=== PATIENT | female | born 1960 | race Caucasian/White ===

== ENCOUNTER 2023-05-06 13:47 | Outpatient (AMB) | payer OTHER, SELFPAY ==
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
== END 2023-05-06 15:49 | disposition home or self-care (01) ==
PROVIDERS: PCP Pediatrics; Referring Provider Physician Assistant; Visit Provider Physician Assistant
DX: G95.9 Disease of spinal cord, unspecified (principal); R29.898 Other symptoms and signs involving the musculoskeletal system
CPT/HCPCS: 99204

== ENCOUNTER → 2023-05-06 13:47 | Outpatient (BNVA) | payer OTHER, SELFPAY | PROVIDERS: PCP Pediatrics; Visit Provider Physician Assistant ==

== ENCOUNTER 2023-05-27 14:04 | Outpatient (AMB) | payer OTHER, SELFPAY ==
--- NOTE | 2023-05-27 14:15 | HO.SPINEOV ---
Intake Intake Visit Reasons: MRI f/u Intake Note: Ms. Pablo is here today to F/u on MRI Press Operator Required: No Assessment & Plan Assessment & Plan (1) Leg weakness: Code(s): R29.898 - Other symptoms and signs involving the musculoskeletal system Plan Mrs Pablo is here in follow-up today. She underwent her cervical and thoracic MRI done at [facility] for evaluation of possible spinal cord impingement. We do see the previous area of myelomalacia at C3 which was seen on her previous MRI done at [place] a number of years ago consistent with her known spinal cord injury 20 years ago. We do not see any new areas of concern or spinal cord impingement that would explain the patient's symptoms. The thoracic MRI as well does not show any evidence of compression or cord signal change. I reviewed the patient's imaging, and I re-examined her with Dr. Mendoza. She clearly has a spastic right leg with proximal weakness that would not fit with her stenosis at L3-4, L4-5 necessarily. She currently has no pain. Where a little perplexed as to what is causing this significant change in her stability and her proximal leg weakness on the right side. We are going to order a brain MRI to rule out that she did not have a stroke last year when the leg weakness started. I will call her with the results. If there is nothing on that image that would explain her symptoms, we would consider possible decompression of the lumbar area because of the weakness. Total amount of time spent in this visit was 20 minutes in discussion of symptoms, cervical and thoracic imaging results and subsequent plan of care Bernardino Mendoza MD,PhD [facility] Orders: Orders MR head/brain wo con Today R29.898 - Other symptoms and signs involving the musculoskeletal system Coding Level of Care Code Est Pt Level 3 (71763) Diagnoses Leg weakness R29.898
== END 2023-05-27 15:10 | disposition home or self-care (01) ==
PROVIDERS: PCP Pediatrics; Visit Provider Physician Assistant
DX: R29.898 Other symptoms and signs involving the musculoskeletal system (principal)
CPT/HCPCS: 99213

== ENCOUNTER → 2023-05-27 14:04 | Outpatient (BNVA) | payer OTHER, SELFPAY | PROVIDERS: PCP Pediatrics; Visit Provider Physician Assistant ==

== ENCOUNTER 2023-06-24 11:33 | Outpatient (REF) | payer OTHER, SELFPAY | END 2023-06-24 11:34 | disposition home or self-care (01) | LOC: CF 11:33 | DX: Z13.89 Encounter for screening for other disorder (principal) ==

== ENCOUNTER 2023-08-01 14:02 | Outpatient (REF) | payer OTHER, SELFPAY ==
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
== END 2023-08-01 14:03 | disposition home or self-care (01) ==
LOC: HO.NEURO 14:02
PROVIDERS: PCP Pediatrics; Visit Provider Physician Assistant
DX: R29.898 Other symptoms and signs involving the musculoskeletal system (principal)
CPT/HCPCS: 95886; 95908

== ENCOUNTER → 2023-08-01 14:06 | Outpatient (BNV) | payer OTHER, SELFPAY | PROVIDERS: PCP Pediatrics; Visit Provider Physical Medicine & Rehabilitation | DX: G57.31 Lesion of lateral popliteal nerve, right lower limb (principal) | CPT/HCPCS: 95886; 95908 ==

== ENCOUNTER 2023-09-25 14:48 | Outpatient (AMB) | payer OTHER, SELFPAY ==
--- NOTE | 2023-09-25 15:10 | A.SPINEOV_ITS ---
Intake Visit Reasons: discuss MRI's/questions Intake Note: Ms. Pablo is here today to discuss MRI Mushroom Laborer Required: No Assessment & Plan Assessment & Plan (1) Leg weakness: Code(s): R29.898 - Other symptoms and signs involving the musculoskeletal system Category: Medical Plan Mrs Pablo is here in follow-up. We had previously seen her in the setting of difficulty walking and some imbalance of her gait. We did an extensive workup and ultimately we are not able to find anything that would strictly cause balance issues. Ultimately an EMG showed a peroneal neuropathy. She comes in today and tells me that the pain that was in her leg is basically gone and the strength in her foot seems to have returned. She reports now being pain free in his very excited about that. We talked about general recovery from nerve injuries and that things could continue to improve but she should call me if something changes down the road. I do not think the stenosis was the original source of her symptoms, it was probably the peroneal neuropathy. If she does return with significant leg pain then we could consider re-evaluating her for the stenosis. Total amount of time spent in this visit was 20 minutes in discussion of symptoms, lumbar imaging results and subsequent plan of care Bernardino Mendoza MD,PhD [facility] Coding Level of Care Code Global (71094) Diagnoses Leg weakness R29.898
== END 2023-09-25 15:39 | disposition home or self-care (01) ==
PROVIDERS: PCP Pediatrics; Visit Provider Physician Assistant
DX: R29.898 Other symptoms and signs involving the musculoskeletal system (principal)
CPT/HCPCS: 99213

== ENCOUNTER → 2023-09-25 14:48 | Outpatient (BNVA) | payer OTHER, SELFPAY | PROVIDERS: PCP Pediatrics; Visit Provider Physician Assistant ==

== ENCOUNTER 2024-02-16 11:18 | Outpatient (AMB) | payer OTHER, SELFPAY ==
--- NOTE | 2024-02-16 11:26 | HO.SPINEOV ---
Intake Visit Reasons: discuss possible surgery Intake Note: Ms. Pablo is here today to Discuss Surgical options. Executive Housekeeper Required: No Assessment & Plan Assessment & Plan (1) Lumbar stenosis: Code(s): M48.061 - Spinal stenosis, lumbar region without neurogenic claudication Category: Medical Plan Dear Tom, Mrs Pablo came in for another evaluation. Unfortunately the right leg pain came back in his now giving her significant amount of pain when she is walking. It radiates from her right side of her low back down into her buttock and into her posterolateral thigh, but also part of her anterior thigh. She is feeling weakness in bit of her anterior thigh as well and her tibialis with dorsiflexion. This has been an on and off thing for her, but now it is getting to a point where she goes home from work and just sits in a chair she can not get up and even do something simple like walk her dog. She is very frustrated with her quality of life. She has been through conservative treatment add nauseam. I think she is ready for consideration of surgical decompression, specifically a right L3-4 right L4-5 decompression. I did briefly discuss this procedure with her, but will review the x-rays and MRIs done at [facility] with Dr. Mendoza just to confirm the plan. She understands that the weakness in her tibialis and in her iliopsoas will likely not get better with surgery as these are partly attributed to her previous history of cervical myelopathy and peroneal neuropathy. Pt was given risk and benefits of surgery including but not limited to infection, hematoma , nerve injury,durotomy, weakness,bowel/bladder injury, persistent pain, as well as the option to continue with conservative treatment and patient wishes to proceed with surgery. Pt is aware they should stop their motrin, aspirin 7 days prior to surgery. All questions were answered to the best of our ability. If there is anything about this patients medical history that we have overlooked or concerns you have about us proceeding with surgery we would appreciate any input you can offer. Total amount of time spent in this visit was 20 minutes in discussion of symptoms, lumbar imaging results and subsequent plan of care Bernardino Mendoza MD,PhD [facility] Coding Level of Care Code Est Pt Level 3 (42130) Diagnoses Lumbar stenosis M48.061
--- OUTSIDE RECORDS SUMMARY | 2024-02-16 12:53 | XMS_ITS ---
Author Name [facility] Organization Unknown History of Medication Use Medication Directions Dispensed Refills Start Date End Date Stat predniSONE (DELTASONE) 20 MG tablet Take 2 tablets (40 mg total) by mouth daily. With food. 11/24/2021 aborted PARoxetine (PAXIL) 30 MG tablet Take 30 mg by mouth daily. 11/24/2021 active azithromycin (ZITHROMAX) 250 MG tablet Take 2 tablets by mouth on day 1 followed by 1 tablet by mouth daily on days 2 through 5. 04/19/2023 active benzonatate (TESSALON) 200 MG capsule Take 1 capsule (200 mg total) by mouth 3 (three) times a day as needed for cough. 11/24/2021 active albuterol (PROVENTIL HFA; VENTOLIN HFA) 108 (90 Base) MCG/ACT inhaler Inhale 2 puffs every 4 (four) hours as needed for wheezing or shortness of breath. 04/19/2023 active Problems Problem Status Onset Date Problem Type Date of Resoluti on Source Acute bacterial bronchitis active [facility]
--- OUTSIDE RECORDS SUMMARY | 2024-02-16 12:59 | XMS_ITS | Continuity of Care Document ---
Author Organization [facility] Address [address] [place] [address]- Care Team Providers Care Qa Automation Architect Name Role Phone Nasir Vela MD Primary Care Physician Encounter [facility] [place] [place] Date(s): 12/26/23 - 01/25/24 [facility] [address] [place] [id number] Attending Physician: Chastity Beck Admitting Physician: Chastity Beck Referring Physician: Admtr ArDonna Encounter Type: Triage Allergies, Adverse Reactions, Alerts No Known Allergies Medications Ativan 0.5 mg oral tablet 0.5 tablet = 0.25 mg, By Mouth, 2 times a day, # 30 tablet, 0 Refills, Maintenance, 01/05/18 10:55:44 AM EST, Tablet Start Date: 01/05/18 Status: Ordered Quantity: 30.0 Unit: tablet Repeat number: 1 Multivitamin Daily, 0 Refills, Maintenance, 06/21/16 3:43:21 PM EDT Start Date: 06/21/16 Status: Ordered Repeat number: 1 PARoxetine 30 mg oral tablet 1 tablet = 30 mg, By Mouth, 2 times a day, 0 Refills, Maintenance, 06/21/16 3:42:12 PM EDT Start Date: 06/21/16 Status: Ordered Repeat number: 1 Problem List Condition Confirmation Course Effective Dates Status Health St [facility] Informant Follicular lymphoma Confirmed Active Obese class I Confirmed Active Social History Social History Type Response Smoking Status Current some day smo ker entered on: 01/28/17 Sex Sex Representation Female (finding) Laboratory * Event Display: Non [facility] Lab Results Authored Date: * Event Display: Non [facility] Lab Results Authored Date: Patient Care team information Care Team Personnel Name: Ammon , Diana Position: [facility] Onco RN Member Role: Primary Care Nurse Name: Kari Agrawal MA Position: [facility] Onco RN Member Role: Primary Care Nurse Name: Nasir Vela MD Position: [facility] Physician - Primary Care Member Role: PCP Address: [address] [place] [address] Appetizer Packer VIJAYA Swanson [id number] Telecom: Care Team Related Persons Name: KATIE MEADE Insurance Providers Guarantor name: CANDACE Health Plan Information #: 1 Payer: [employer] Member Number: NA Policy Number: NA Group Number: NA
== END 2024-02-16 12:48 | disposition home or self-care (01) ==
PROVIDERS: PCP Pediatrics; Visit Provider Physician Assistant
DX: M48.061 Spinal stenosis, lumbar region without neurogenic claudication (principal)
CPT/HCPCS: 99213

== ENCOUNTER 2024-03-25 | Outpatient (REF) | payer OTHER, SELFPAY ==
--- NOTE | 2024-03-15 | ECG_ITS ---
Test Reason : pre op Blood Pressure : */* mmHG Vent. Rate : 74 BPM Atrial Rate : 74 BPM P-R Int : 124 ms QRS Dur : 84 ms QT Int : 414 ms P-R-T Axes : 49 20 35 degrees QTcB Int : 459 ms Normal sinus rhythm Normal ECG No previous ECGs available Referred By: Pastora Cummings Electronically Signed By: Ethan Correa
[2024-03-15 12:23] VITALS: BP 176/83; PULSE 77; RESP 18; O2SAT 98; BMI 32.6
--- NOTE | 2024-03-15 12:51 | P.CONAN_ITS ---
Documented by User: Pastora Cummings NP 03/16/24 13:17 HPI - Anesthesia Eval Consult details Narrative: 64yo F for Right L3-4,L4-5 Lumbar Decompression, 03/25/24 No recent illness No CP/SOB with minimal activity d/t pain Occassional smoker Lymphoma: Resovled ~ 7 years ago PMF Active Problems Active Problems: All Active Problems Lumbar stenosis (Acute) Leg weakness (Acute) Cervical myelopathy (Acute) Past Medical History Medical History White coat syndrome with hypertension Tobacco use disorder Depression OCD (obsessive compulsive disorder) Anxiety Follicular non-Hodgkin lymphoma Cervical myelopathy Lumbar stenosis with neurogenic claudication Family History Family history of problems with anesthesia: No Surgical History Surgical History Hx of excision of mass Hx of cone biopsy of cervix Hx of tonsillectomy H/O colonoscopy History of Problems with Anesthesia: No Social History Social History Are you a primary health care administrator to a significant other at home: No Do you presently have visiting nurse or other home services: No Patient Tobacco Use Status: Current everyday Tobacco user Tobacco use type: Cigarette Cigarettes Per Day: 3 Years Smoked: 20 Use of substances other than those prescribed or required for medical reasons: Yes Substance Use Frequency: Daily Have you been hit, kicked, punched, or otherwise hurt by someone within the past year? If so, by whom?: No Are you DNR?: No Advance Directives: No Advance Directives Information Provided: Yes Advance Directives on File: No Recently lost weight without trying: No Nutrition Risks: No Nutritional Risk Patient : No Meds Allergies Allergy/AdvReac Type Severity Reaction Status Date / Time No Known Allergies Allergy Verified 03/31/24 11:39 Home Medications ?Medication ?Instructions ?Recorded ?Confirmed ?Last Taken ?Type paroxetine HCl 30 mg tablet 60 mg PO QAM 03/12/24 03/31/24 03/30/24 History acetaminophen 500 mg tablet 1,000 mg PO Q6H PRN Pain 03/15/24 03/31/24 03/30/24 History naproxen sodium 220 mg capsule 220 mg PO BID 03/15/24 03/15/24 Unknown History (Aleve) Exam Height,Weight and Vital Signs: Height 5 ft 4.5 in Weight 87.543 kg Last Vital Signs Pulse 77 03/15/24 12:23 Resp 18 03/15/24 12:23 BP 176/83 H 03/15/24 12:23 Pulse Ox 98 03/15/24 12:23 O2 Del Method Room Air 03/15/24 12:23 Pertinent Lab Results Pertinent Lab Results: CBC and CMP 10/2023 from outside facility WNL Narrative Narrative: EKG 03/2024 Vent. Rate : 74 BPM Atrial Rate : 74 BPM P-R Int : 124 ms QRS Dur : 84 ms QT Int : 414 ms P-R-T Axes : 49 20 35 degrees QTcB Int : 459 ms Normal sinus rhythm Normal ECG No previous ECGs available Airway Mallampati Class: I TM Dist: >3cm Neck ROM: Limited Loose/Missing/Broken Teeth: Yes (1 x missing, crowns throughout) Heart: RRR Lungs: CTAB Assessment and Plan Assessment Anesthesia Assessment: Anesthesia Plan Discussed, Smoking Cess. Discussed and PAT Visit Final Anesthetic Review Family History of Problems with Anesthesia: No History of Problems with Anesthesia: No Documented by User: Janie Mota MD 03/31/24 12:10 PMFSH Past Medical History Medical History White coat syndrome with hypertension Tobacco use disorder Depression OCD (obsessive compulsive disorder) Anxiety Follicular non-Hodgkin lymphoma Cervical myelopathy Lumbar stenosis with neurogenic claudication Surgical History Surgical History Hx of excision of mass Hx of cone biopsy of cervix Hx of tonsillectomy H/O colonoscopy Social History Social History Are you a primary health care administrator to a significant other at home: No Do you presently have visiting nurse or other home services: No Patient Tobacco Use Status: Current everyday Tobacco user Tobacco use type: Cigarette Cigarettes Per Day: 3 Years Smoked: 20 Use of substances other than those prescribed or required for medical reasons: Yes Substance Use Frequency: Daily Have you been hit, kicked, punched, or otherwise hurt by someone within the past year? If so, by whom?: No Are you DNR?: No Advance Directives: No Advance Directives Information Provided: Yes Advance Directives on File: No Recently lost weight without trying: No Nutrition Risks: No Nutritional Risk Patient : No Meds Allergies Allergy/AdvReac Type Severity Reaction Status Date / Time No Known Allergies Allergy Verified 03/31/24 11:39 Home Medications ?Medication ?Instructions ?Recorded ?Confirmed ?Last Taken ?Type paroxetine HCl 30 mg tablet 60 mg PO QAM 03/12/24 03/31/24 03/30/24 History acetaminophen 500 mg tablet 1,000 mg PO Q6H PRN Pain 03/15/24 03/31/24 03/30/24 History naproxen sodium 220 mg capsule 220 mg PO BID 03/15/24 03/15/24 Unknown History (Aleve) Assessment and Plan Final Anesthetic Review NPO: Yes ASA Class: III Final Preanesthetic Review: No Changes in Pt Med Stat, Meds/Allgs Chart Reviewed, Consent Obtained/Reviewed and Anes Risks/Benef Reviewed Patient Risk: Intermediate Procedure Risk: Intermediate Anesthetic Plan Anesthetic Plan: GA Disposition: Standard PACU
--- OUTSIDE RECORDS SUMMARY | 2024-08-03 15:00 | XMS_ITS | Clinical Summary ---
Author Organization [facility] Address [address] [place] [address] Care Team Providers Care Mold Tooler Name Role Phone Pcp, No Primary Care [...] 85 04/17/2023 8:31 AM EST Temperature 36.8 C (98.2 F) 04/17/2023 8:31 AM EST Respiratory Rate 18 04/17/2023 8:31 AM EST [...] Zoster (Shingles) Vaccine (1 of 2) 2011 COVID-19 Vaccine (3 - 2023-2 5 season) 2023 11/16/2020, 10/17/2020 Influenza Vaccine 09/10/2024 02/23/2019 RSV Vaccine 60 years and older and Patients (1 - 1-dose 75+ series) 02/10/2036 Hepatitis B Vaccines Aged Out No long er eligible based on patient's age to complete this topic Insurance [facility] AETNA HMO/POS Care Teams Mold Tooler Relationship Specialty Start Date End Date Pcp, Maryuri PCP - General General Medicine 04/17/23
== END 2024-03-25 00:01 | disposition home or self-care (01) ==
LOC: HO.PAT
PROVIDERS: Visit Provider Neurological Surgery
DX: Z01.818 Encounter for other preprocedural examination (principal); M48.061 Spinal stenosis, lumbar region without neurogenic claudication
CPT/HCPCS: 93005

== ENCOUNTER 2024-03-31 11:04 | Day surgery (SDC) | payer OTHER, SELFPAY ==
[2024-03-31] VITALS (8 sets, daily range): BP systolic 123–149; BP diastolic 72–94; PULSE 85–104; RESP 16–20; TEMP 37.1–37.6; O2SAT 93–97; BMI 31.2
--- NOTE | ~2024-03-31 | FL_ITS ---
EXAMINATION: FLUOROSCOPY GUIDANCE FOR NEEDLE PLACEMENT CLINICAL INFORMATION: l3 l4, l4 l5 decompression, right COMPARISON: None available. TECHNIQUE: Fluoroscopy guidance in the operative room patient in prone position and 2 static images obtained of the lumbar region. FINDINGS: Metallic instruments at the L3-4 and L4-5 posterior elements levels FLUOROSCOPY TIME: 5.4 seconds. DOSE AREA PRODUCT: 5. 5772 uGy-m2 (microgray-meter squared) FL/FL guidance in OR IMPRESSION: Nondiagnostic fluoroscopy guidance for posterior lumbar decompression L3-4 and L4-5. Please refer to the procedure note. Electronically signed by: Phuc Scott MD 04/02/2024 08:29 AM BLU
[2024-03-31] MEDS: methocarbamoL 750 MG TABLET PO (11:51)
[2024-03-31] MEDS: Gabapentin 300 MG CAPSULE PO (11:51)
[2024-03-31] MEDS: Lactated Ringers 1,000 ML 100 ML IVCONT (11:54)
--- NOTE | 2024-03-31 12:46 | MHC.SHP ---
Pre-Procedural Eval Section A - 24 Hr Update-Section A only Date of Service: 03/31/24 Section B - Complete if H&P > 30 days Chief Complaint: Spinal stenosis, lumbar region without neurogenic Allergies: Allergies Allergy/AdvReac Type Severity Reaction Status Date / Time No Known Allergies Allergy Verified 03/31/24 11:39 Review of Systems Sugical H&P ROS: Negative: Constitution, Cardiovascular, Respiratory, Neurological, Psychiatric, Hem-Onc, Allergic/Immunologic, Gastrointestinal, Genitourinary, Musculoskeletal, Integumentary, Endocrine and Eyes/Ears/Nose/Throat Exam Surgical H&P Exam: Not Evaluated: HEENT, Not Evaluated: Heart, Not Evaluated: Lungs, Not Evaluated: Extremities, Not Evaluated: Abdomen, Not Evaluated: Skin and Not Evaluated: Neurological Plan Diagnosis/Plan: Unchanged I have reviewed the history and physical and performed a pertinent physical examination on my patient. No changes have occurred unless specified. Plan remains the same, right sided L3-4, L4-5 lumbar decompression. Time Spent With Patient Time: Total time managing care of this patient today __13__ minutes.
--- NOTE | 2024-03-31 14:50 | W.PM.OPN ---
Operative Note Operative Note Date of Service: 03/31/24 Narrative: Preoperative Diagnosis: L3-4 and L4-5 spinal stenosis/lateral recess stenosis/neural foraminal stenosis Operation: Right L3-4, L4-5 Laminotomy, Partial facetectomy and foraminotomy with use of microscope Consent Informed Consent was obtained for this operation. I have explained the nature, purpose and benefits of the operation. I have discussed the risks and benefit of the operation including possible complications or adverse events with patient/family. Alternative(s) were discussed with the patient with their relative benefits and risks as well as the consequences of not accepting the operation were included in obtaining consent. Surgeon: DAVID MARTINEZ MD, PHD Procedure Assisted By: Leonid Johnson Description of Procedure This 64-year-old female suffering from a right lumbar radiculopathy due to L3-4 and L4-5 lateral recess stenosis.. The patient was offered a decompression. The procedure complications were explained. The patient was consented. The patient was brought to the operating room and endotracheally intubated. The patient was turned in prone position on the Hubert frame. Prep and drape was done followed by timeout. The Physician instructional assistant provided access. A mid lumbar incision was made followed by release of the paravertebral muscle on the right side to expose the L3-4 and L4-5 lamina and facet joints. An intraoperative x-ray was obtained to confirm the correct level. The microscope was brought in. I took over the procedure. The high-speed drill was used to do a right C4 and L4-5 laminotomy until flavum ligament was reached. I then continued with the L3-4 level. A #2 Kerrison was used to expand the laminotomy near flush to the pedicles and to include a partial facetectomy. The flavum ligament was opened and resected with a #3 Kerrison to decompress the underlying thecal sac. The flavum ligament was removed to decompress the lateral recess and the exiting L4 nerve root. . A long nerve hook could be easily passed along the medial side of the pedicles as a sign of adequate decompression. Then attention was turned to the L4-5 level. Flavum ligament was opened and the underlying thecal sac and exiting nerve root were decompressed. Significant lateral recess stenosis was present at both levels. The microscope was removed. Hemostasis was done. The physician instructional assistant close the Incision in 2 layers. Steri-Strips were used to approximate incision. An OpSite with Tegaderm was used to cover the incision. All sponge needle counts were correct. Patient was extubated and transported in stable is to recovery room. Anesthesia: General Estimated Blood Loss (ml): 30 mL Complications: None Duration of Surgery: 90 minutes Minutes Postoperative Plan: Discharge to home
--- NOTE | 2024-03-31 14:59 | PM.DS ---
DS: Providers Provider Date of Service: 03/31/24 Date of discharge: 03/31/24 Primary care physician: Unknown Physician DS: Summary Time Attestation Discharge Coordination Time (in mins): 12 Quality: Safe Use of Opioids Does Pt have an Active Cancer Diagnosis on the Problem List?: No Quality: Stroke Does the patient have a stroke diagnosis?: No Physical Exam Vital Signs: Vital Signs: Last Vital Signs Temp 98.7 F 03/31/24 11:45 Pulse 94 03/31/24 11:45 Resp 16 03/31/24 11:45 BP 149/94 H 03/31/24 11:45 Pulse Ox 97 03/31/24 11:45 O2 Del Method Room Air 03/31/24 11:45 BMI result Body Mass Index 31.2 Discharge Plan Discharge Patient Disposition: Home, Self-Care Referrals: Physician,Unknown J [Primary Care Provider] - 1 Week Discharge Medications: New oxycodone 5 mg tablet 5 mg PO Q6H PRN (Reason: pain ) Qty: 30 0RF Rx Instructions: Partial Fill upon patient request. Continued paroxetine HCl 30 mg tablet 60 mg PO QAM Held naproxen sodium [Aleve] 220 mg Capsule 220 mg PO BID Hold Instructions: Resume on 03/31/24. No Action acetaminophen 500 mg Tablet 1,000 mg PO Q6H PRN (Reason: Pain) Discharge Orders: Discharge Order (Routine); Ordered 03/31/24 Ordered By: Nick De Jesus Diet: Advance to usual diet Activity on Discharge: As tolerated Activity Restrictions/Additional Instructions: After your spinal surgery we ask you to observe the following restrictions/guidelines: Activity: It is normal to feel some discomfort as you increase your activity, but that will improve with time. We ask you avoid heavy lifting or acitivities that cause pain. As a general rule, 8lbs is a safe limit for lifting right after surgery. Walk as much as you feel comfortable but not to exhaustion. You will feel extra tired the first few days after surgery. Stay well hydrated. It is OK to walk up and down stairs You may return to driving when you are off narcotics (such as vicodin, oxycodone, dilaudid, etc), and you are back to normal functional capacity. If you have any concerns please check with office before driving. Return to work is specific to each patient and each surgery, so please speak with your doctor/PA at first follow up. Please bring paperwork such as FMLA at that time if you need it filled out. Medications: We recommend you take 1,000mg Tylenol every 8 hours for the first few weeks after surgery, if you do not have any liver issues and can tolerate this medication. Do not exceed 4,000mg daily. We will give you a short supply of narcotics after surgery (usually one weeks worth). If you need more please call the office but do not use more than prescribed. You will need to give our office 48 hours notice if you need narcotics refilled and we do not fill narcotics on weekends or evenings. If you are on a narcotic, it is a good idea to take a stool softener such as colace or senna to avoid constipation If you take blood thinner such as aspirin, Plavix, Coumadin, Effient, Eliquis etc for conditions such as Afib, DVT, Pulmonary embolus, coronary disease, stents etc please speak with your surgeon about specific details as to when you can resume these medications. You can resume NSAIDs on post op day 1 (eg: Motrin, Naproxen, etc). Follow up: Please call the office, , after surgery to arrange a 3 week follow up for wound check. Wound Care: You may remove your dressing on the first day after surgery. ?You may ?leave open to air. Please do not remove the steri strips underneath. they will fall off on their own in one week. IT IS NORMAL FOR THE WOUND TO OOZE OR BE BLOODY FOR A FEW DAYS AFTER SURGERY. ?IF THIS HAPPENS JUST PLACE NEW DRESSING OVER IT TO AVOID STAINING CLOTHES. You may shower on post op day # 1 We ask that you do not let the water soak the wound. If it does get wet, just towel dry lightly. Please do not scrub your incision or place any type of chemical/ointment on the wound. No tub baths, pools or jacuzzis for one month. If you have any leaking or redness from your wound, or fevers, please call the office. Print Language: Slovak
[2024-03-31] MEDS: oxyCODONE HCl Immed Release 5 MG TABLET PO (15:58)
== END 2024-03-31 16:33 | disposition home or self-care (01) ==
PROVIDERS: Visit Provider Neurological Surgery
PROC: (CPT 63047; principal; 2024-03-31 13:00)
DX: M48.061 Spinal stenosis, lumbar region without neurogenic claudication (principal); M54.16 Radiculopathy, lumbar region; M79.604 Pain in right leg; R26.2 Difficulty in walking, not elsewhere classified; F17.210 Nicotine dependence, cigarettes, uncomplicated; Z79.1 Long term (current) use of non-steroidal anti-inflammatories (NSAID); Z79.899 Other long term (current) drug therapy
CPT/HCPCS: 63047; 63048; J0131; J0690; J1100; J1171; J1885; J2003; J2250; J2371; J2405; J2704; J3010

== ENCOUNTER → 2024-03-31 11:04 | Outpatient (BNV) | payer OTHER, SELFPAY | PROVIDERS: Visit Provider Neurological Surgery | DX: M48.062 Spinal stenosis, lumbar region with neurogenic claudication (principal) | CPT/HCPCS: 63047; 63048; 99499 ==

== ENCOUNTER 2024-04-23 11:31 | Outpatient (AMB) | payer OTHER, SELFPAY ==
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
--- OUTSIDE RECORDS SUMMARY | 2024-04-23 13:19 | XMS_ITS | Clinical Summary ---
Author Organization [facility] Address [address] [place] [address] Care Team Providers Care Manual Arts Teacher Name Role Phone Pcp, No Primary Care Provider Unavailabl e Allergies No known active allergies Medications Medication Sig Dispensed Refills Start Date End Date Status PARoxetine (PAXIL) 30 MG tablet Take 30 mg by mouth daily. 10/04/2021 Active benzonatate (TESSALON) 200 MG capsuleIndications: Bronchitis Take 1 capsule (200 mg total) by mouth 3 (three) times a day as needed for cough. 21 capsule 11/23/2021 Active albuterol (PROVENTIL HFA; VENTOLIN HFA) 108 (90 Base) MCG/ACT inhalerIndications: Acute bacterial bronchitis Inhale 2 puffs every 4 (four) hours as needed for wheezing or shortness of breath. 1 each 04/17/2023 Active predniSONE (DELTASONE) 20 MG tabletIndications:A cute bacterial bronchitis Take 2 tablets (40 mg total) by mouth daily. With food. 10 tablet 04/17/2023 Active Active Problems No known active problems Social History Tobacco Use Types Packs/Day Years Used Date Smoking Tobacco: Former Cigarettes Smokeless Tobacco: Never Tobacco Cessation:Counseling Given: Not Answered Sex and Gender Information Value Date Recorded Sex Assigned at Not on file Gender Identity Not on file Sexual Orientation Not on file Last Filed Vital Signs Vital Sign Reading Time Taken Comments Blood Pressure 133/76 04/17/2023 8:31 AM EST Pulse 85 04/17/2023 8:31 AM EST Temperature 36.8 ??C (98.2 ??F) 04/17/2023 8:31 AM ES T Respiratory Rate 18 04/17/2023 8:31 AM EST Oxygen Saturation 95% 04/17/2023 8:31 AM EST Inhaled Oxygen Concentration - - Weight 86.2 kg (190 lb) 04/17/2023 8:31 AM EST Height 165.1 cm (5' 5 ) 04/17/2023 8:31 AM EST Body Mass Index 31.62 04/17/2023 8:31 AM EST Plan of Treatment Health Maintenance Due Date Last Done Comments Hepatitis C Virus Screening 1961 HIV Screening 1974 DTaP/Tdap/Td Vaccines (1 - Tdap) 02/10/1980 Pap Smear (Ages 21-65) 1982 Mammogram 2001 Colonoscopy 2006 Pneumococcal Vaccines 50+ (1 of 1 - PCV) 2011 Zoster (Shingles) Vaccine (1 of 2) 2011 Influenza Vaccine 09/11/2023 02/23/2019 COVID-19 Vaccine (3 - 2023-2 5 season) 2023 11/16/2020, 10/17/2020 RSV Vaccine 60 years and older and Patients (1 - 1-dose 75+ series) 02/10/2036 Hepatitis B Vaccines Aged Out No long er eligible based on patient's age to complete this topic Pneumococcal Vaccine: Pediatric (0-5 Years) and At-Risk Patients (6 to 49 Years) Aged Out No longer eligible b ased on patient's age to complete this topic Care Teams Manual Arts Teacher Relationship Specialty Start Date End Date Pcp, No PCP - General General Medicine 04/17/23
--- OUTSIDE RECORDS SUMMARY | 2024-04-23 13:19 | XMS_ITS | Encounter Summary ---
Author Organization [facility] Address [address] [place] [address] Care Team Providers Care Shipping And Receiving Weigher Name Role Phone Adama Vela MD Primary Care Provider Reason for Referral * Consultation (Routine) - Pending Review Specialty Diagnoses / Procedures Referred By Controd t Referred To Contact Dermatology Diagnoses Skin lesion Bernardino Arevalo PA [address], [place] Phone: tel: fax: [facility] [address] [place] [address] Phone: tel: fax: Referral ID Status Reason Start Date Expiration Date Visits Requested Visits Authorized [id number] Pending Review Specialty Services Required 04/08/2024 04/08/2025 1 1 Reason for Visit * Reason Comments Follow-up Encounter Details Date Type Department Care Team (Latest Contact Info) Description 04/08/2024 9:45 AM EST Office Visit Adult Medicine - [place] [address] [place] [id number] Bernardino Arevalo PA [address] [place] [address] Anxiety (Primary Dx); Depression, unspecified depression type; Hx of decompressive lumbar laminectomy; Skin lesion Social History Tobacco Use Types Packs/Day Years Used Date Smoking Tobacco: Light Smoker Cigarettes 0.5 35 Started: 974; Last attempted to quit: 02/10/2009 Smokeless Tobacco: Never Tobacco Cessation:Ready to Q uit: Not Asked; Counseling Given: Not Answered Alcohol Use Standard Drinks/Week Comments Yes 0 (1 standard drink = 0.6 oz pur e alcohol) Comments Unknown Sex and Gender Information Value Date Recorded Sex Assigned at Not on file Legal Sex Female 12:59 PM EST Gender Identity Not on file Sexual Orientation Not on file documented as of this encounter Last Filed Vital Signs Vital Sign Reading Time Taken Comments Blood Pressure 128/84 04/08/2024 10:19 AM EST Pulse 68 04/08/2024 9:54 AM EST Temperature 36.7 ??C (98 ??F) 04/08/2024 9:54 AM EST Respiratory Rate - - Oxygen Saturation - - Inhaled Oxygen Concentration - - Weight 86.7 kg (191 lb 3.2 oz) 04/08/2024 9:54 A M EST Height 165.1 cm (5' 5 ) 04/08/2024 9:54 AM EST Body Mass Index 31.82 04/08/2024 9:54 AM EST documented in this encounter Ordered Prescriptions Prescription Sig Dispense Quantity Refills Last Filled Start Date End Date PARoxetine (PAXIL) 30 mg tablet Take 2 tablets (60 mg total) by mouth 1 (one) time each day in the morning. 180 tablet 3 04/08/2024 documented in this encounter Progress Notes * CATHLEEN Sheridan - 04/08/2024 9:45 AM EST CHIEF COMPLAINT: Follow-up IDENTIFIER: Nohemi Pablo is a 64 y.o. old female. HPI: History of Present Illness The patient presents for a medication review. Medication Review - She has been on paroxetine for 32 years, taking two tablets daily in the morning. - She received a refill approximately one month ago. -Stable with medication. No SI or HI. Has good support at home. - She has not used Wegovy due to insurance and cost issues. Lumbar Decompression Surgery - She underwent right-sided lumbar decompression by Dr. Lan Mendoza at [facility] a week ago. - The minimally invasive procedure allowed same-day discharge. - She is on a 4 to 6-week leave from work. - Pre-surgery, she had significant difficulty walking with heaviness and pain. - Post-surgery, she reports improvement and can walk. - She used pain management for one week. Dermatology Referral - She has noticed two skin lesions and seeks a dermatology referral. SOCIAL HISTORY - On a 4 to 6-week leave from work - Works as a manager college/operations research manager for [employer] MEDICATIONS Current: Paroxetine, Motrin. Discontinued: Dilaudid. ROS: GENERAL: Negative for malaise, significant weight loss and fever NECK: Negative for lumps, goiter, pain, and significant neck swelling RESPIRATORY: No cough, wheezing or shortness of breath CARDIOVASCULAR: Negative for chest pain, leg swelling and palpitations GI: Negative for abdominal discomfort, changes in bowel habits, blood in stool or black stools ENDOCRINE: Negative for cold or heat intolerance, polyuria, polydipsia and goiter NEURO: No persistent headache, fainting, seizures, strokes, TIAs, weakness, numbness or tingling PAST MEDICAL HISTORY: Patient Active Problem List Diagnosis Date Noted Hx of decompressive lumbar laminectomy 04/08/2024 Nerve damage of right foot 10/28/2023 Cervical myelopathy ([facility]) 03/28/2023 Follicular non-Hodgkin's lymphoma ([facility]) 03/28/2023 Lumbar stenosis with neurogenic claudication 03/28/2023 Anxiety 05/04/2015 OCD (obsessive compulsive disorder) 11/08/2014 Depression 02/25/2006 Cervicalgia 02/25/2006 Tobacco use disorder 02/25/2006 SOCIAL HISTORY: Social History Tobacco Use Smoking status: Light Smoker Current packs/day: 0.00 Average packs/day: 0.5 packs/day for 35.0 years (17.5 ttl pk-yrs) Types: Cigarettes Start date: 1974 Last attempt to quit: 02/10/2009 Years since quittin.1 Smokeless tobacco: Never Substance Use Topics Alcohol use: Yes FAMILY HISTORY: Family Status Relation Name Status Mother DMII Father at age 73 DMII Sister Alive MGM old age MGF old age PGM old age PGF old age Daughter (Not Specified) Other (Not Specified) Neg Hx (Not Specified) No partnership data on file Family History Problem Relation Name Age of Onset Heart failure Mother No Known Problems Father No Known Problems Sister No Known Problems Maternal Grandmother No Known Problems Maternal Grandfather No Known Problems Paternal Grandmother No Known Problems Paternal Grandfather No Known Problems Daughter No Known Problems Other Breast cancer Neg Hx Colon cancer Neg Hx Ovarian cancer Neg Hx Uterine cancer Neg Hx ACTIVE MEDICATIONS: Outpatient Medications Marked as Taking for the 04/08/24 encounter (Office Visit) with CATHLEEN Sheridan Medication Sig Dispense Refill ibuprofen (ADVIL,MOTRIN) 200 mg tablet Take 2 Tablets by mouth every 6 hours as needed. multivitamin tablet Take 1 Tab by mouth daily. PARoxetine (PAXIL) 30 mg tablet Take 2 tablets (60 mg total) by mouth 1 (one) time each day in the morning. 180 tablet 3 semaglutide (Wegovy) 0.25 mg/0.5 mL injection pen Inject 0.25 mg into the skin once a week. [DISCONTINUED] PARoxetine (PAXIL) 30 mg tablet TAKE 2 TABLETS BY MOUTH EVERY MORNING 180 tablet 0 ALLERGIES: Patient has no known allergies. PHYSICAL EXAM: Blood pressure 128/84, pulse 68, temperature 36.7 ??C (98 ??F), temperature source Temporal, height1.651 m (65 ), weight 86.7 kg (191 lb 3.2 oz). Body mass index is 31.82 kg/m??. BMI is greater than25.0 (above the normal range) - see Plan APPEARANCE: Alert and in no acute distress EYES: PERRLA, conjunctiva and sclera normal NECK: Neck supple, no adenopathy, thyroid symmetric and of normal size HEART: RRR with normal S1 and S2, no murmurs, no gallops, no JVD appreciated LUNG: clear to auscultation bilaterally EXTREMITIES: Extremities warm and well perfused without clubbing, cyanosis, or edema NEURO: Awake, alert LABS: Abstract on 01/14/2024 Component Date Value Ref Range Status Gonorrhea/Chlamydia Screening 01/04/1998 Abstracted Final Hepatitis C Screening 10/04/2021 Abstracted Final Annual BMP Blood Test 10/28/2023 Abstracted Final Cervical Cancer Screening: HPV 12/09/2022 Negative, Abstracted Final Pap smear 12/09/2022 Negative, Abstracted Final Colonoscopy 10/31/2023 Normal, Abstracted Final Urine Albumin Creatinine Ratio 11/21/2014 Abstracted Final LDL/HDL Ratio 10/28/2023 3 0 - 4 Final Triglycerides 10/28/2023 121 0 - 150 mg/dL Final Cholesterol 10/28/2023 177 0 - 200 mg/dL Final HDL 10/28/2023 69 >=40 mg/dL Final LDL Cholesterol 10/28/2023 84 0 - 100 mg/dL Final Hemoglobin A1C 11/21/2014 5.2 4.0 - 6.0 % Final Legacy Encounter on 10/31/2023 Component Date Value Ref Range Status Case Results 11/03/2023 Final Value: A. COLON, ASCENDING X1-POLYP: - TUBULAR ADENOMA. B. COLON, SIGMOID X1-POLYP: - TUBULAR ADENOMA. Sydnee Duarte M.D. , Pathologist (Case electronically signed 11 03 2023) Pre-Op/Clinical Diagnosis: *COLON POLYPS X2 Specimen and Site: A. COLON, ASCENDING X1-POLYP B. COLON, SIGMOID X1-POLYP Gross Description: A. Labeled ascending colon polyp x1 . Received in formalin are two soft, recinos polypoid tissues measuring 0.25 cm in 0.6 cm in greatest diameter, which are wrapped in paper and submitted in toto in one cassette, two pieces, multiple levels. B. Labeled sigmoid colon polyp x1 . Received in formalin is a soft, recinos-red 0.6 cm in greatest diameter polypoid tissue with attached mucosa, which is inked green at the base, wrapp ed in paper and submitted in toto in one cassette, one piece, multiple levels. Physicians: OPHELIA NAZARIO [id number]/ IMPRESSION: 1. Anxiety 2. Depression, unspecified depression type 3. Hx of decompressive lumbar laminectomy 4. Skin lesion PLAN: I have obtained verbal consent from Nohemi Pablo prior to the recording. I have advised Nohemi Bev that she may refuse the recording and require the recording to be turned off at any time during this encounter. Assessment & Plan 1. Medication review - On paroxetine for 32 years, 2 pills every morning - Prescription to be sent to [facility] pharmacy at [facility] in [place] - Advised to contact pharmacy for transfers 2. Weight management - Lost 6 pounds since last visit - Has not started Wegovy due to insurance issues - Advised to focus on dietary changes -Exercise once recovered from back surgery 30 minutes 5 days weekly 3. Postoperative care - Right-sided lumbar decompression surgery a week ago - Recovering at home for 4 to 6 weeks - Reports improved walking and reduced pain 4. Elevated blood pressure - Blood pressure elevated during visit but reduced to 128/80 - Advised to monitor regularly 5. Dermatology referral - Referral to dermatology for skin lesions Discussed signs and symptoms warranting reevaluation. Risks, benefits, and side-effects of the medication were discussed and the patient expressed verbalunderstanding and consents to the plan. Followup in 6 months This note was created using dictation software and may contain syntax and grammar errors. Orders Placed This Encounter Procedures Ambulatory referral to Dermatology ADDITIONAL ORDERS: AMB REFERRAL TO DERMATOLOGY CATHLEEN Sheridan on 04/08/2024 at 12:04 PM EST documented in this encounter Plan of Treatment Upcoming Encounters Date Type Department Care Team (Late st Contact Info) Description 06/04/2024 3:30 PM EDT Office Visit Obstetrics and Gynecology - [address] [phone] Catherine Morales, [address] [address] Scheduled Referrals Name Type Priority Associated Diagnoses Order Schedule Ambulatory referral to Dermatology Outpatient Referral Routine Skin lesion 1 Occurrences starting 04/08/2024 until 04/08/2025 documented as of this encounter Visit Diagnoses Diagnosis Anxiety- Primary Anxiety state, unspecified Depression, unspecified depression type Hx of decompressive lumbar laminectomy Skin lesion Unspecified disorder of skin and subcutaneous tissue documented in this encounter Discontinued Medications Medication Sig Discontinue Reason Start Date End Da te polyethylene glycol (GoLYTELY) 236-22.74-6.74 -5.86 gram solution Take 240 mL by mouth once for 1 dose. Take 4L by mouth once for one dose. May substitue any PEG. Starting at 6PM the night before your procedure drink 1 8oz glasses at your own pace until rectals run clear. 04/08/2024 PARoxetine (PAXIL) 30 mg tablet TAKE 2 TABLETS BY MOUTH EVERY MORNING Reorder 01/20/2024 04/08/2024 semaglutide (Wegovy) 0.25 mg/0.5 mL injection pen Inject 0.25 mg into the skin once a week. 04/08/2024 documented as of this encounter Care Teams Shipping And Receiving Weigher Relationship Specialty Start Date End Date Adama Vela MD [address] [place] [id number] PCP - General 10/21/01 documented as of this encounter
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
--- OUTSIDE RECORDS SUMMARY | 2024-04-23 13:19 | XMS_ITS | Encounter Summary ---
Author Organization [facility] Address [address] [place] [address] Care Team Providers Care Backwinder Name Role Phone Unavailable Primary Care Provider Unavailabl e Encounter Details Date Type Department Care Team (Late st Contact Info) Description 11/23/2021 11:20 AM EDT Hospital Encounter [facility] [address] [place] [address] Lynette Mcmullen PA-C [address], [place] [phone] Social History Tobacco Use Types Packs/Day Years Used Date Smoking Tobacco: Former Cigarettes Smokeless Tobacco: Never Sex and Gender Information Value Date Recorded Sex Assigned at Not on file Gender Identity Not on file Sexual Orientation Not on file COVID-19 Exposure Response Date Recorded In the last 10 days, have yo u been in contact with someone who was confirmed or suspected to have Coronavirus/COVID-19? Unable to assess 11/23/2021 10: 19 AM EDT documented as of this encounter Plan of Treatment Not on file documented as of this encounter Procedures Procedure Name Priority Date/Time Associated Diagnosis Comments XR CHEST 2 VIEWS STAT 11/23/2021 11:2 8 AM EDT Productive cough documented in this encounter Results * XR Chest 2 views (11/23/2021 11:28 AM EDT) Anatomical Region Laterality Modality Chest Computed Radiogr aphy 11/23/2021 11:3 4 AM EDT Impressions 11/23/2021 11:34 AM EDT Impression: Clear lungs. Narrative 11/23/2021 11:34 AM EDT XR CHEST 2 VIEWS: 11/23/2021 11:20 AM CLINICAL HISTORY: 61-year-old female with productive cough x2.5 weeks. ??COVID-positive on 11/05/2021. ??Persistent cough since. Comparisons: None available. Technique: PA and Lateral views. 2 views. Findings: The cardiac silhouette is normal in size. The mediastinal and hilar structures appear unremarkable. The lungs are well expanded without focal infiltrates identified. The visualized osseous structures appear unremarkable. Procedure Note Jamey Taveras MD - 11/23/2021 XR CHEST 2 VIEWS: 11/23/2021 11:20 AM CLINICAL HISTORY: 61-year-old female with productive cough x2.5 weeks. COVID-positive on11/05/2021. Persistent cough since. Comparisons: None available. Technique: PA and Lateral views. 2 views. Findings: The cardiac silhouette is normal in size. The mediastinal and hilarstructures appear unremarkable. The lungs are well expanded without focalinfiltrates identified. The visualized osseous structures appearunremarkable. IMPRESSION: Impression: Clear lungs. Lynette Mcmullen PA-C [facility] ORDERABLES documented in this encounter Visit Diagnoses Not on filedocumented in this encounter
== END 2024-04-23 12:14 | disposition home or self-care (01) ==
LOC: HO.HNS 11:32
PROVIDERS: Visit Provider Physician Assistant
DX: M48.061 Spinal stenosis, lumbar region without neurogenic claudication (principal); G95.9 Disease of spinal cord, unspecified
CPT/HCPCS: 99024

== ENCOUNTER → 2024-04-23 11:31 | Outpatient (BNVA) | payer OTHER, SELFPAY | PROVIDERS: Visit Provider Physician Assistant ==

== ENCOUNTER 2024-06-07 15:20 | Outpatient (AMB) | payer OTHER, SELFPAY ==
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
--- OUTSIDE RECORDS SUMMARY | 2024-06-07 18:07 | XMS_ITS | Encounter Summary ---
Author Organization [facility] Address [address] [place] [address] Care Team Providers Care Electrician Control Equipment Name Role Phone Unavailable Primary Care Provider Unavailabl e Encounter Details Date Type Department Care Team (Late st Contact Info) Description 11/23/2021 11:20 AM EDT Hospital Encounter [facility] [address] [place] [address] Lynette Mcmullen PA-C [address], [place] [phone] Social History Tobacco Use Types Packs/Day Years Used Date Smoking Tobacco: Former Cigarettes Smokeless Tobacco: Never Comments Unknown Sex and Gender Information Value Date Recorded Sex Assigned at Not on file Legal Sex Female 8:57 AM EDT Gender Identity Not on file Sexual Orientation [...] IMPRESSION: Impression: Clear lungs. Lynette Mcmullen PA-C [facility] DIAGNOSTIC IMAGING ORD ERABLES Final Result documented in this encounter Visit Diagnoses Not on filedocumented in this encounter
--- OUTSIDE RECORDS SUMMARY | 2024-06-07 18:07 | XMS_ITS | Encounter Summary ---
Author Organization [facility] Address [address] [place] [address] Care Team Providers Care Renewable Energy Engineer Name Role Phone Adama Vela MD Primary Care Provider [phone] Reason for Visit * Reason Comments Gynecologic Exam Encounter Details Date Type Department Care Team ([facility] Contact Info) Description 06/04/2024 3:30 PM EDT Office Visit Obstetrics and Gynecology - [address] [id number] Catherine Morales, [facility] [address] [place] [address] Encounter for gynecological examination without abnormal finding (Primary Dx) Social History Tobacco Use Types Packs/Day Years Used Date Smoking Tobacco: Light Smoker Cigarettes 0.5 35 Started: 974; Last attempted to quit: 02/10/2009 Smokeless Tobacco: Never Alcohol Use Standard Drinks/Week Comments Yes 0 [...] Sign Reading Time Taken Comments Blood Pressure 122/80 06/04/2024 3:25 PM EDT Pulse 84 06/04/2024 3:25 PM EDT Temperature - - Respiratory Rate - - Oxygen Saturation - - Inhaled Oxygen Concentration - - Weight 87.5 kg (193 lb) 06/04/2024 3:25 PM EDT Height - - Body Mass Index 32.12 04/08/2024 9:54 AM EST documented in this encounter Progress Notes * Catherine Morales CNM - 06/04/2024 3:30 PM EDT Office note: Annual Exam Encounter Date: 06/04/2024 HPI: Nohemi Pablo is a 64 y.o. who presents for routine annual exam. No LMP recorded. No obgyn hospitalist physician concerns or PMB. Had back surgery last month and is feeling much better, hopes to start camping again this spring. Not SA, declines STI testing. Not eating well or exercising but planning to start more healthy habits. Review of Systems - General ROS: negative Psychological ROS: negative Ophthalmic ROS: negative ENT ROS: negative Allergy and Immunology ROS: negative Hematological and Lymphatic ROS: negative Endocrine ROS: negative Breast ROS: negative for breast lumps Respiratory ROS: no cough, shortness of breath, or wheezing Cardiovascular ROS: no chest pain or dyspnea on exertion Gastrointestinal ROS: no abdominal pain, change in bowel habits, or black or bloody stools Genito-Urinary ROS: no dysuria, trouble voiding, or hematuria Musculoskeletal ROS: negative Neurological ROS: negative Dermatological ROS: negative Health Maintenance and Preventative Care: Health Maintenance: Last mammogram: 2024 BIRADS 2 Immunization History Administered Date(s) Administered Moderna SARS-CoV-2 COVID-19, mRNA, LNP-S, preservative free 10/17/2020 Td Tetanus diptheria (Tdvax) 7yo and older 02/19/2019 Tdap Tetanus diptheria acellular pertussis (Boostrix; Adacel) 7yo and older 06/23/2008 OB History Para Term AB Living 2 0 0 2 SAB IAB Ectopic Multiple Live Births 2 # Outcome Date GA Lbr Calin/2nd Weight Sex Type Anes PTL Lv 2 SAB 1 SAB Accounts Collector History: Last Pap: 2022 NIL neg HPV H/o abnormal Pap: 2018 NIL HPV+, HPV neg in 2021 and 2022 Completed Gardasil series: no Domestic violence: no Patient Active Problem List Diagnosis Depression Cervicalgia Tobacco use disorder OCD (obsessive compulsive disorder) Anxiety Cervical myelopathy ([facility] V24, [facility] V28) Follicular non-Hodgkin's lymphoma ([facility] V24, [facility] V28) Lumbar stenosis with neurogenic claudication Nerve damage of right foot Hx of decompressive lumbar laminectomy Past Medical History: Diagnosis Date Acute spinal cord injury 08/2001 DX:Acute spinal cord injury Follicular non-Hodgkin's lymphoma of oral cavity (CMS/HCC V24, CMS/HCC V28) 05/2016 DX:Follicular non-Hodgkin's lymphoma of oral cavity (HCC); COMMENT: Treated with 12 treatments of radiation Fracture 08/2001 DX:Fracture; COMMENT: c1, c5, c6, t5, t1 History of colon polyps DX:History of colon polyps OCD (obsessive compulsive disorder) DX:OCD (obsessive compulsive disorder) Past Surgical History: Procedure Laterality Date COLONOSCOPY 05/2012 PROCEDURE: HISTORICAL COLONOSCOPY; COMMENT: polyps found, f/u 5 yrs COLONOSCOPY 09/24/2017 PROCEDURE: HISTORICAL COLONOSCOPY; COMMENT: tubular adenomas OTHER SURGICAL HISTORY 2003 PROCEDURE: [place] COLPOSCOPY CERVIX VAG ELTRD CONIZATION CERVIX TONSILLECTOMY ADENOIDECTOMY, BILATERAL MYRINGOTOMY AND TUBES PROCEDURE: [place] TONSILLECTOMY & ADENOIDECTOMY <AGE 13 Family History Problem Relation Name Age of Onset Heart failure Mother No Known Problems Father No Known Problems Sister No Known Problems Daughter No Known Problems Maternal Grandmother No Known Problems Maternal Grandfather No Known Problems Paternal Grandmother No Known Problems Paternal Grandfather No Known Problems Other Breast cancer Neg Hx Colon cancer Neg Hx Ovarian cancer Neg Hx Uterine cancer Neg Hx Kidney cancer Neg Hx Pancreatic cancer Neg Hx Prostate cancer Neg Hx Social History Socioeconomic History Marital status: Unknown Spouse name: Not on file Number of children: Not on file Years of education: Associate's Highest education level: Not on file Occupational History Not on file Tobacco Use Smoking status: Light Smoker Current packs/day: 0.00 Average packs/day: 0.5 packs/day for 35.0 years (17.5 ttl pk-yrs) Types: Cigarettes Start date: 1974 Last attempt to quit: 02/10/2009 Years since quittin.3 Smokeless tobacco: Never Substance and Sexual Activity Alcohol use: Yes Drug use: No Sexual activity: Defer Comment: same partner since 2008 Other Topics Concern Not on file Social History Narrative Lives with dog. Safe at home No Known Allergies Prior to Admission medications Medication Sig Start Date End Date Taking? Authorizing Provider bisacodyL (DULCOLAX) 5 mg EC tablet Yes Historical Provider, ibuprofen (ADVIL,MOTRIN) 200 mg tablet Take 2 Tablets by mouth every 6 hours as needed. Yes Historical Provider, multivitamin tablet Take 1 Tab by mouth daily. Yes Historical Provider, PARoxetine (PAXIL) 30 mg tablet Take 2 tablets (60 mg total) by mouth 1 (one) time each day in the morning. 04/08/24 04/08/25 Yes CATHLEEN Sheridan Outpatient Medications Marked as Taking for the 06/04/24 encounter (Office Visit) with Catherine Morales CNM Medication Sig Dispense Refill bisacodyL (DULCOLAX) 5 mg EC tablet ibuprofen (ADVIL,MOTRIN) 200 mg tablet Take 2 Tablets by mouth every 6 hours as needed. multivitamin tablet Take 1 Tab by mouth daily. PARoxetine (PAXIL) 30 mg tablet Take 2 tablets (60 mg total) by mouth 1 (one) time each day in the morning. 180 tablet 3 Physical exam: Blood pressure (!) 169/92, pulse 84, weight 87.5 kg (193 lb). Body mass index is 32.12 kg/m??. Gen: Alert, cooperative. Well-appearing on today's exam HEENT: head normocephalic without obvious deformity. Normal dentition. Neck: Trachea midline. No palpable cervical lymphadenopathy noted. Thyroid normal to inspection andpalpation. Cardiovascular: regular rate and rhythm, no m/r/g Lung: clear to auscultation bilaterally, no wheezing, ronchi, normal respiratory effort Breast: Normal appearance, no masses or tenderness, no nipple retraction or dimpling bilaterally. No axillary or supraclavicular lymphadenopathy. Abdomen: Soft,non-tender. No masses palpable, no organomegaly. Extremities: no calf tenderness, discoloration or edema, atraumatic without deformity Psych: Mood and affect appropriate. Pelvic: External Genitalia: Normal architecture, without lesions. No inguinal lymphadenopathy. Vagina: Mucosa is pink with normal rugae. No abnormal discharge or lesions. Cervix: Normal appearance, without discharge or lesions. No cervical motion tenderness. Pap smear not obtained. Uterus: Normal size and shape. Non-tender. Mobile Adnexa: No adnexal masses or tenderness bilaterally. Perianal area without lesions Assessment/Plan: 64 y.o. 1. Screening for sexually transmitted infections -testing declined 2. Contraception -menopause 3. Health Maintenance and Screening -Reviewed ASCCP guidelines. Will do Pap in 2026, consider repeating in 2028 to confirm 10 years since last abnormal Pap -Reviewed and encouraged diet and exercise for cardiovascular and bone health -Reviewed breast self awareness. Continue yearly mammogram. -Continue to follow with PCP for general medical care, immunizations -Family and personal history of cancer reviewed. Based on this evaluation, neither BRCA nor Quinonez testing are indicated. 1. Encounter for gynecological examination without abnormal finding No orders of the defined types were placed in this encounter. Follow up in 1 year (on 06/04/2025). Catherine Morales CNM documented in this encounter Plan of Treatment Not on file documented as of this encounter Visit Diagnoses Diagnosis Encounter for gynecological examination without abnormal finding- Primary documented in this encounter Care Teams Renewable Energy Engineer Relationship Specialty Start Date End Date Adama Vela MD [address] [place] [id number] PCP - General 10/21/01 documented as of this encounter
--- OUTSIDE RECORDS SUMMARY | 2024-06-07 18:07 | XMS_ITS | Clinical Summary ---
Author Organization [facility] Address [address] [place] [address] Care Team Providers Care Coremaker Supervisor Name Role Phone Pcp, No Primary Care Provider Unavailabl e Allergies No known active allergies Medications PARoxetine (PAXIL) 30 MG tablet Take 30 mg by mouth daily. 2 Active benzonatate (TESSALON) 200 MG capsuleIndicati ons:Bronchitis Take 1 capsule (200 mg total) by mouth 3 (three) times a day as needed for cough. 21 capsule 2 Active albuterol (PROVENTIL HFA; VENTOLIN HFA) 108 (90 Base) MCG/ACT inhalerIndicati ons:Acute bacterial bronchitis Inhale 2 puffs every 4 (four) hours as needed for wheezing or shortness of breath. 1 each 4 Active predniSONE (DELTASONE) 20 MG tabletIndicatio ns:Acute bacterial bronchitis Take 2 tablets (40 mg total) by mouth daily. With food. 10 tablet 4 Active Active Problems No known active problems Social History Tobacco Use Types Packs/Day Years Used Date Smoking Tobacco: Former Cigarettes Smokeless Tobacco: Never Tobacco Cessation:Counseling Given: Not Answered Comments Unknown Sex and Gender Information Value Date Recorded Sex Assigned at Not on file Legal Sex Female 8:57 AM EDT Gender Identity Not on file Sexual Orientation Not on file Last Filed Vital Signs Vital Sign Reading Time Taken Comments Blood Pressure 133/76 04/17/2023 8:31 AM EST Pulse 85 04/17/2023 8:31 AM EST Temperature 36.8 ??C (98.2 ??F) 04/17/2023 8:[address] Respiratory Rate 18 04/17/2023 8:31 AM EST [...] on patient's age to complete this topic Insurance [facility] AETNA HMO/POS Care Teams Coremaker Supervisor Relationship Specialty Start Date End Date Pcp, No PCP - General General Medicine 04/17/23
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
== END 2024-06-07 16:00 | disposition home or self-care (01) ==
LOC: HO.HNS 15:20
PROVIDERS: Visit Provider Physician Assistant
DX: R29.898 Other symptoms and signs involving the musculoskeletal system (principal)
CPT/HCPCS: 99024